=== PATIENT | female | born 1945 | race Two or more races ===

== ENCOUNTER 2025-07-05 07:56 | Inpatient (IN) | payer OTHER, MEDICARE, MEDICAID ==
[~2025-07-05] VITALS: Ht 149.9 cm; Wt 69.9 kg
--- NOTE | 2025-07-05 11:01 | ED.PDOC ---
HPI Comments 79 year old female with PMHx HTN presents to the ED with a chief complaint of high blood pressure onset 2 days. Daughter states patient's BP has been elevated for the past 2 days, has been complaint with medication. Patient states she has also been experiencing headache. Upon ED arrival, BP was 139/97. Denies chest pain, dizziness, blurred vision, numbness/tingling, nausea, vomiting,diarrhea, fever, chills. No other symptoms or modifying factors present at this time. 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 HYDRO EXCAVATION OPERATOR History Family History Family History: Reviewed,noncontributory to illness, No family hx of Cancer, No family hx of DM, No family hx of Heart monica, No family hx of HTN, No family hx ofKidney monica, No family hx of Liver monica, No family hx of Lung monica, No family hx of Stroke Social History Smoker: Non-Smoker Alcohol: Denies ETOH Use Drugs: Denies Drug Use Lives In: Home Constitutional: denies: chills, diaphoresis, fatigue, fever, malaise, sweats, weakness, others EENTM: denies: blurred vision, double vision, ear bleeding, ear discharge, ear drainage, ear pain, ear ringing, eye pain, eye redness, hearing loss, mouth pain, mouth swelling, nasal discharge, nose bleeding, nose congestion, nose pain, photophobia, tearing, throat pain, throat swelling, voice changes, others Respiratory: denies: cough, hemoptysis, orthopnea, SOB at rest, shortness of breath, SOB with excertion, stridor, wheezing, others Cardiovascular: reports: others (hypertension); denies: chest pain, dizzy spells, diaphoresis, Dyspnea on exertion, edema, irregular heart beat, left arm pain, lightheadedness, palpitations, PND, syncope Gastrointestinal: denies: abdomen distended, abdominal pain, blood streaked bowels, constipated, diarrhea, dysphagia, difficulty swallowing, hematemesis, melena, nausea, poor appetite, poor fluid intake, rectal bleeding, rectal pain, vomiting, others Genitourinary: denies: abnormal vagina bleeding, burning, dyspareunia, dysuria, flank pain, frequency, hematuria, incontinence, pain, , vagina discharge, urgency, others Neurological: reports: headache; denies: dizziness, fainting, left sided numbness, left sided weakness, numbness, paresthesia, pre-existing deficit, right sided numbness, right sided weakness, seizure, speech problems, tingling, tremors, weakness, others Musculoskeletal: denies: back pain, gout, joint pain, joint swelling, muscle pain, muscle stiffness, neck pain, others Integumetry: denies: bruises, change in color, change in hair/nails, dryness, laceration, lesions, lumps, rash, wounds, others Allergic/Immunocompromised: denies: Difficulty Healing, Frequent Infections, Hives, Itching, others Hematologic/Lymphatic: denies: anemia, blood clots, easy bleeding, easy bruising, swollen glands, others Endocrine: denies: excessive hunger, excessive sweating, excessive thirst, excessive urination, flushing, intolerance to cold, intolerance to heat, unexplained weight gain, unexplained weight loss, others Psychiatric: denies: anxiety, bipolar disorder, depression, hopeless, panic disorder, schizophrenia, sleepless, suicidal, others All Other Systems: Reviewed and Negative Physical Exam General Appearance: No Apparent Distress, Normal HEENT: Normal ENT Inspection, Pharynx Normal, TMs Normal Neck: Full Range of Motion, Non-Tender, Normal, Normal Inspection Respiratory: Chest Non-Tender, Lungs Clear, No Accessory Muscle Use, No Respiratory Distress, Normal Breath Sounds Cardiovascular: No Edema, No JVD, No Murmur, No Gallop, Normal Peripheral Pulses, Regular Rate/Rhythm Breast Exam: Deferred Gastrointestinal: No Organomegaly, Non Tender, No Pulsatile Mass, Normal Bowel Sounds, Soft Genitalia: Deferred Pelvic: Deferred Rectal: Deferred Extremities: No calf tenderness, Normal capillary refill, Normal inspection, Normal range of motion, Non-tender, No pedal edema Musculoskeletal : Apperance: Normal Neurologic: Alert, patrol officer II-XII nml as Tested, No Motor Deficits, Normal Affect, Normal Mood, No Sensory Deficits Cerebellar Function: Normal Reflexes: Normal Skin: Dry, Normal Color, Warm Lymphatic: No Adenopathy Was a procedure done? Was a procedure done?: No CP Differential Dx Differential Diagnosis: Hypoxia, MAT, MN, PAC's, Pacemaker Malfunction Differential Diagnosis: HTN Essential, HTN Accelerated Differential Diagnosis: Gastritis, Myocardial Infarction, Pericarditis X-Ray, Labs, Meds, VS Vital Signs Date Time Temp Pulse Resp B/P (MAP) Pulse Ox O2 Delivery O2 Flow Rate FiO2 07/05/25 07:57 97.1 64 16 139/97 98 97.1 Lab Test 07/05/25 13:23 07/05/25 11:23 Range/Units Troponin I High Sensitivity Pending 7 </=34 ng/L White Blood Count 6.6 4.4-10.8 10^3/uL Red Blood Count 5.70 H 4.0-5.20 10^6/uL Hemoglobin 12.3 12.2-16.2 g/dL Hematocrit 39.3 36.0-46.0 % Mean Corpuscular Volume 69.0 L 80.0-100.0 fL Mean Corpuscular Hemoglobin 21.7 L 28.0-32.0 pg Mean Corpuscular Hemoglobin Concent 31.4 L 32.0-36.0 g/dL Red Cell Distribution Width 19.0 H 11.8-14.3 % Platelet Count 255 140-450 10^3/uL Mean Platelet Volume 8.0 6.9-10.8 fL Neutrophils (%) (Auto) 37.0-80.0 % Lymphocytes (%) (Auto) 10.0-50.0 % Monocytes (%) (Auto) 0.0-12.0 % Basophils (%) (Auto) 0.0-2.0 % Neutrophils # (Auto) 1.6-8.6 10 ^3/uL Lymphocytes # (Auto) 0.4-5.4 10 ^3/uL Monocytes # (Auto) 0-1.3 10 ^3/uL Differential Total Cells Counted 100.0 100 Neutrophils % (Manual) 60 37.0-80.0 Band Neutrophils % (Manual) 0 Lymphocytes % (Manual) 32 10.0-50.0 Monocytes % (Manual) 5 0-12 Eosinophils % (Manual) 3 0-7 Basophils % (Manual) 0 0.0-2.0 Metamyelocytes % (manual) 0 Myelocytes % (Manual) 0 Promyelocytes % (Manual) 0 Blast Cells % (Manual) 0 Reactive Lymphocytes 0 Platelet Estimate Adequate Sodium Level 130 L 136-145 mmol/L Potassium Level 4.3 3.5-5.1 mmol/L Chloride Level 97 L 98-107 mmol/L Carbon Dioxide Level 23 20-31 mmol/L Anion Gap 10 5-15 Blood Urea Nitrogen 11 9-23 mg/dL Creatinine 1.13 H 0.550-1.02 mg/dL Glomerular Filtration Rate Calc 50 >90 mL/min BUN/Creatinine Ratio 9.7 L 10.0-20.0 Serum Glucose 131 H 74-106 mg/dL Calcium Level 9.6 8.7-10.4 mg/dL B-Type Natriuretic Peptide 250.00 0-100 pg/mL Time of 1ST Reevaluation: 11:20 Reevaluation 1ST: Unchanged Patient Education/Counseling: Diagnosis, Treatment, Prognosis Family Education/Counseling: Diagnosis, Treatment, Prognosis SEPSIS Sepsis Screen Date sepsis recognized/suspect: Jul 05, 2025 Time Sepsis recognized/suspect: 075 Recent Procedure: No On Antibiotic Therapy: No Respiratory Rate >20: No Heart Rate >90: No Temp<36 C (96.8 F) or >38.3 C: No SBP <90 or MAP <65 mmHG: No New Acute Mental Status Change: No Is the patient on CPAP, BIPAP,: No Physician Orders Chest Portable (07/05/25 10:57) Head Without Contrast (07/05/25 10:57) Electrocardigram (07/05/25 10:57) Urinalysis (07/05/25 10:57) Troponin-I Hs (07/05/25 11:57) Troponin-I Hs (07/05/25 13:57) Electrocardigram (07/05/25 11:57) Electrocardigram (07/05/25 13:57) Vital Signs Date Time Temp Pulse Resp B/P (MAP) Pulse Ox O2 Delivery O2 Flow Rate FiO2 07/05/25 07:57 97.1 64 16 139/97 98 97.1 Laboratory Tests Test 07/05/25 11:23 White Blood Count 6.6 10^3/uL (4.4-10.8) Departure 1 Departure Time of Disposition: 13:51 (Patient presented with hypertension and symptoms concerning for hypertensive emergency. Patient is receiving iv blood pressure medications requiring intensive monitoring. Data: 1. I ordered and reviewed the result of at least 3 labs including a CBC, BMP, and Urinalysis. 2. I independently interpreted the following tests: CT Brain: Which appears benign. EKG which is Normal Sinus RhythmRisk:This patient has a high risk of morbidity due to further diagnostic testing or treatment and may suffer from an acute cardiac disorder. Workup reveals hypertensive emergency and patient should be admitted for further workup. and possible expert consultation. ) Impression: Primary Impression: Hypertensive urgency Additional Impression: Migraine Disposition: ADMITTED INPATIENT Admit to: Tele Condition: Guarded Critical Care Note Critical Care Time?: Yes Critical care comment: Hypertensive urgency Authorized and Performed by: Niharika Carey MD Total critical care time: Approximately 38 minutes Due to a high probability of clinically significant, life threatening deterioration, the patient required my highest level of preparedness to intervene emergently and I personally spent this critical care time directly and personally managing the patient. This critical care time included obtaining a history; examining the patient; pulse oximetry; ordering and review of studies; arranging urgent treatment with development of a management plan; evaluation of patient's response to treatment; frequent reassessment; and, discussions with other providers. This critical care time was performed to assess and manage the high probability of imminent, life-threatening deterioration that could result in multi-organ failure. It was exclusive of separately billable procedures and treating other patients and teaching time. Please see my other sections and the rest of the note for further information on patient assessment and treatment. Stability Stability form required: No Heart Score Heart Score: Heart Score Response (Comments) Value History N/A 0 EKG N/A 0 Age N/A 0 Risk Factors N/A 0 Troponin N/A 0 Total 0 I personally scribed for NIHARIKA CAREY MD ([email or web address]) on 07/05/25 at 11:01. Electronically submitted by Annmarie Donald ([email or web address]). NIHARIKA CAREY MD Jul 05, 2025 11:01
[2025-07-05 12:02] LABS: Hematocrit 39.3 % (36.0-46.0); Hemoglobin 12.3 g/dL (12.2-16.2); Mean Corpuscular Hemoglobin 21.7 pg (28.0-32.0); Mean Corpuscular Volume 69.0 fL (80.0-100.0)
[2025-07-05 12:04] LABS: Potassium 4.3 mmol/L (3.5-5.1)
[2025-07-05 12:05] LABS: Anion Gap 10 (5-15); Calcium 9.6 mg/dL (8.7-10.4); Carbon Dioxide 23 mmol/L (20-31)
--- NOTE | 2025-07-05 12:07 | DVH ---
CT brain without contrast CLINICAL INDICATION: htn, headache FINDINGS: The study was performed in a multidetector scanner. This study performed taking axial images from the skull base up to the vertex. Both brain and bone windows are photographed. Dose lowering techniques have been used including automated exposure control and adjustment of mA and/or KV according to patient size. Normal and symmetrical shape and density of brain parenchyma above and below the tentorium is seen. There is no mass, midline shift or hydrocephalus. No intra/extra-axial collections demonstrated. There is no intracranial hemorrhage. The calvarium is intact. IMPRESSION: 1. No acute intracranial pathology. 2. 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 Computed Tomographic Radiation Dosimetry Report: Total CTDI vol = 53.5mGy Total DLP = 966.44mGy-cm All CT scans at this medical facility are performed using dose modulation techniques as appropriate to a performed exam including the following: Automated exposure control was utilized; adjustment of the MA and/or KvP according to patient size; and use of iterative reconstruction technique.
--- NOTE | 2025-07-05 12:09 | DVH ---
INDICATION: htn, chest pain TECHNIQUE: Frontal view of the chest. COMPARISON: None FINDINGS: . The heart and mediastinal contours are grossly unremarkable. There is no evidence of pleural disease. The lungs are clear. The bony structures of the chest are intact without fracture. IMPRESSION: 1. No evidence of acute disease.
[2025-07-05 12:10] LABS: BUN/Creatinine Ratio 9.7 (10.0-20.0); Blood Urea Nitrogen 11 mg/dL (9-23)
[2025-07-05 12:11] LABS: Chloride 97 mmol/L (98-107); Glucose 131 mg/dL (74-106); Sodium 130 mmol/L (136-145)
[2025-07-05 12:45] LABS: Total Cells Counted 100.0 (100)
[2025-07-05] MEDS: hydrALAZINE HCL 20 MG/ML VL IV ONE (14:28)
[2025-07-05] MEDS ORDERED: ACETAMINOPHEN 325 MG TAB PO PRN (14:30)
[2025-07-05] MEDS ORDERED: HYDROcodone-ACET 5/325MG TAB PO PRN (14:30)
[2025-07-05 14:34] VITALS: BP 167/64; PULSE 57; RESP 16; TEMP 98.4; O2SAT 99
--- NOTE | 2025-07-05 14:51 | DVHHPRES ---
History of Present Illness Resident Creating Document: NAYELI CAVAZOS RESIDENT History of Present Illness This is a 79-year-old female poor historian/does not speak Ivorian 100%. Patient has past medical history of hypertension, pulmonary hypertension, diabetes mellitus type 2, dyslipidemia who presented to the ED with chief complaint of significantly high blood pressure in the past two days associated with headache and lightheadedness. According to the daughter, patient has been having consistently high blood pressure at home approximately 180/98 in multiple occasions. The daughter also states that the patient keeps reporting insomnia, headache and lightheadedness. Daughter states that the patient is adhering to her home blood pressure medications and is taking all medications as prescribed. Upon arrival to the ED systolic blood pressure was in the 145s and received single dose of IV hydralazine. Initial labs were grossly unremarkable except for mild JED with a creatinine of 1.13. We will admit the patient for further assessment and management of hypertensive urgency. Home medications: Losartan 50 mg daily, metoprolol tartrate 25 mg b.i.d., clonidine 0.1 mg b.i.d., simvastatin 20 mg daily Surgical history: Per daughter, patient had an open heart surgery [place] March 03, 2025 for a mass in the left side of the heart. 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 Cardiovascular: HTN, hyperipidemia Endocrine: Diabetes Past Surgical History: Other (Open heart surgery on [place] March 03, 2025 due to a mass in the left side of the heart.), Tubal Ligation Family History: None Smoke: No ALCOHOL: none Drugs: None Lives: with Family Review of Systems Constitutional: Yes: Malaise, Other (Headache and lightheadedness); No: Fever, Chills, Sweats, Weakness Eyes: No: Pain, Vision change, Conjunctivae inflammation, Eyelid inflammation, Other, Redness ENT: No: Ear pain, Ear discharge, Nose pain, Nose discharge, Nose congestion, Mouth pain, Mouth swelling, Throat pain, Throat swelling, Other Respiratory: No: Cough, Dry, Shortness of breath, SOB with excertion, Wheezing, Hemoptysis, Pleuritic Pain, Sputum, Wheezing, Other Cardiovascular: No: Chest Pain, Palpitations, Orthopnea, Paroxysmal Noc. Dyspnea, Edema, Lt Headedness, Other Gastrointestinal: No: Nausea, Vomiting, Abdominal Pain, Diarrhea, Constipation, Melena, Hematochezia, Other Genitourinary: No Dysuria, No Frequency, No Incontinence, No Hematuria, No Retention, No Other Musculoskeletal: No: other, neck pain, shoulder pain, arm pain, back pain, hand pain, leg pain, foot pain Skin: No: Rash, Lesions, Jaundice, Bruising, Other Neurological: No: Weakness, Numbness, Incoordination, Change in speech, Confusion, Seizures, Other Allergies: Coded Allergies: NO KNOWN ALLERGIES (Unverified , 07/05/25) Medications Current Medications Medications Dose Ordered Sig/Karishma Route Start Time Stop Time Status Last Admin Dose Admin Acetaminophen 650 mg Q6HP PRN PO 07/05/25 14:30 UNV Acetaminophen/ Hydrocodone Bitart 1 tab Q4HP PRN PO 07/05/25 14:30 UNV Enoxaparin Sodium 40 mg DAILY SC 07/06/25 10:00 UNV Losartan Potassium 50 mg DAILY PO 07/06/25 10:00 UNV Metoprolol Tartrate 25 mg BID PO 07/05/25 22:00 UNV Exam Vital Signs Vital Signs Date Time Temp Pulse Resp B/P (MAP) Pulse Ox O2 Delivery O2 Flow Rate FiO2 07/05/25 07:57 97.1 64 16 139/97 98 97.1 General Appearance: Alert, Oriented X3, Cooperative, No acute distress HEENT: Atraumatic, PERRLA, EOMI, Mucous membr. moist/pink Respiratory: Clear to auscultation, Normal air movement Cardiovascular: Regular rate, Normal S1, Normal S2, No murmurs Abdominal: Normal bowel sounds, Soft, No tenderness, No hepatospenomegaly, No masses Extremities: No clubbing, No cyanosis, No edema, Normal pulses, No tenderness/swelling Skin: No rashes, No breakdown, No significant lesion Neuro: Normal gait, Normal speech, Strength at 5/5 X4 ext, Normal tone, Sensation intact, Cranial nerves 3-12 NL, Reflexes 2+ Psych/Mental Status: Mental status NL, Mood NL Labs/Xrays Labs Test 07/05/25 13:23 07/05/25 11:23 Range/Units Troponin I High Sensitivity 6 </=34 ng/L White Blood Count 6.6 4.4-10.8 10^3/uL Red Blood Count 5.70 H 4.0-5.20 10^6/uL Hemoglobin 12.3 12.2-16.2 g/dL Hematocrit 39.3 36.0-46.0 % Mean Corpuscular Volume 69.0 L 80.0-100.0 fL Mean Corpuscular Hemoglobin 21.7 L 28.0-32.0 pg Mean Corpuscular Hemoglobin Concent 31.4 L 32.0-36.0 g/dL Red Cell Distribution Width 19.0 H 11.8-14.3 % Platelet Count 255 140-450 10^3/uL Mean Platelet Volume 8.0 6.9-10.8 fL Neutrophils (%) (Auto) 37.0-80.0 % Lymphocytes (%) (Auto) 10.0-50.0 % Monocytes (%) (Auto) 0.0-12.0 % Basophils (%) (Auto) 0.0-2.0 % Neutrophils # (Auto) 1.6-8.6 10 ^3/uL Lymphocytes # (Auto) 0.4-5.4 10 ^3/uL Monocytes # (Auto) 0-1.3 10 ^3/uL Differential Total Cells Counted 100.0 100 Neutrophils % (Manual) 60 37.0-80.0 Band Neutrophils % (Manual) 0 Lymphocytes % (Manual) 32 10.0-50.0 Monocytes % (Manual) 5 0-12 Eosinophils % (Manual) 3 0-7 Basophils % (Manual) 0 0.0-2.0 Metamyelocytes % (manual) 0 Myelocytes % (Manual) 0 Promyelocytes % (Manual) 0 Blast Cells % (Manual) 0 Reactive Lymphocytes 0 Platelet Estimate Adequate Sodium Level 130 L 136-145 mmol/L Potassium Level 4.3 3.5-5.1 mmol/L Chloride Level 97 L 98-107 mmol/L Carbon Dioxide Level 23 20-31 mmol/L Anion Gap 10 5-15 Blood Urea Nitrogen 11 9-23 mg/dL Creatinine 1.13 H 0.550-1.02 mg/dL Glomerular Filtration Rate Calc 50 >90 mL/min BUN/Creatinine Ratio 9.7 L 10.0-20.0 Serum Glucose 131 H 74-106 mg/dL Calcium Level 9.6 8.7-10.4 mg/dL B-Type Natriuretic Peptide 250.00 0-100 pg/mL SEPSIS Sepsis Screen Date sepsis recognized/suspect: Jul 05, 2025 Time Sepsis recognized/suspect: 075 Recent Procedure: No On Antibiotic Therapy: No Respiratory Rate >20: No Heart Rate >90: No Temp<36 C (96.8 F) or >38.3 C: No SBP <90 or MAP <65 mmHG: No New Acute Mental Status Change: No Is the patient on CPAP, BIPAP,: No Physician Orders Chest Portable (07/05/25 10:57) Head Without Contrast (07/05/25 10:57) Electrocardigram (07/05/25 10:57) Urinalysis (07/05/25 10:57) Troponin-I Hs (07/05/25 13:57) Electrocardigram (07/05/25 11:57) Electrocardigram (07/05/25 13:57) Admit (07/05/25 14:20) Code Status (07/05/25 14:20) Vital Signs .PER UNIT PROTOCOL (07/05/25 14:20) Review Orders With Adm.Md (07/05/25 14:20) Encourage Activity As Tolerate (07/05/25 14:20) Consistent Carb(Ccho)Diabetes (07/05/25 Dinner) Acetaminophen Tablet (Tylenol Tablet) (07/05/25 14:30) Notify Md Of Changes From Base (07/05/25 14:20) Advance Directive (07/05/25 14:20) Basic Metabolic Panel (07/06/25 04:00) Urinalysis (07/05/25 14:20) Complete Blood Count (07/06/25 04:00) Lipid Panel (07/05/25 14:20) Patient Condition (07/05/25 14:20) Allergies (07/05/25 14:20) Hydrocodone-Acet 5/325mg Tab ([place] 5/32 (07/05/25 14:30) Drug Screen (07/05/25 14:20) Hemoglobin A1c (07/05/25 14:20) Enoxaparin Sodium (Lovenox) (07/06/25 10:00) Losartan Tablet (Cozaar Tablet) (07/06/25 10:00) Metoprolol Tartrate Tablet (Lopressor Ta (07/05/25 22:00) Echo 2d Mode Cardiac Dop (07/05/25 14:27) Acetaminophen Tablet (Tylenol Tablet) (07/05/25 14:30) Atorvastatin (Lipitor) (07/06/25 10:00) NS (07/05/25 14:30) Vital Signs Date Time Temp Pulse Resp B/P (MAP) Pulse Ox O2 Delivery O2 Flow Rate FiO2 07/05/25 07:57 97.1 64 16 139/97 98 97.1 Laboratory Tests Test 07/05/25 11:23 White Blood Count 6.6 10^3/uL (4.4-10.8) Assessment/Plan Assessment/Plan Assessment/plan Hypertensive urgency Acute intractable headache associated with lightheadedness and general malaise 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 Losartan 50 mg daily, metoprolol tartrate 25 mg b.i.d. -EKG ordered, BNP was 250. Trops are negative -ordered echocardiogram -ordered UA and UDS -start atorvastatin 40 mg daily -ordered hemoglobin A1c, start mild sliding scale insulin -monitor blood glucose closely -monitor kidney function -admit to med surge Goals of care discussed with the patient and at bedside, full code Plan discussed with Dr. Fernandez Plan discussed with: Patient, Spouse My Orders Orders - NAYELI CAVAZOS RESIDENT Procedure Category Date Status Time Admit ADMIT 07/05/25 Transmitted 14:20 Code Status CODE 07/05/25 Transmitted 14:20 Vital Signs VALERIE 07/05/25 In Process 14:20 Review Orders With VALERIE 07/05/25 In Process Adm. 14:20 Encourage Activity As VALERIE 07/05/25 In Process Tolerate 14:20 Consistent DIET 07/05/25 Transmitted Carb(Ccho)Diabetes Dinner Acetaminophen Tablet PHA 07/05/25 Logged (Tylenol Tablet) 14:30 Notify Of Changes VALERIE 07/05/25 In Process From Base 14:20 Advance Directive VALERIE 07/05/25 In Process 14:20 Basic Metabolic Panel LAB 07/06/25 Verified 04:00 Urinalysis LAB 07/05/25 Logged 14:20 Complete Blood Count LAB 07/06/25 Verified 04:00 Lipid Panel LAB 07/05/25 Logged 14:20 Patient Condition ORDERS 07/05/25 Transmitted 14:20 Allergies VALERIE 07/05/25 In Process 14:20 Hydrocodone-Acet PHA 07/05/25 Logged 5/325mg Tab ([place] 14:30 Drug Screen LAB 07/05/25 Logged 14:20 Hemoglobin A1c LAB 07/05/25 Logged 14:20 Enoxaparin Sodium PHA 07/06/25 Logged (Lovenox) 10:00 Losartan Tablet PHA 07/06/25 Transmitted (Cozaar Tablet) 10:00 Metoprolol Tartrate PHA 07/05/25 Logged Tablet (Lopressor Ta 22:00 Echo 2d Mode Cardiac US 07/05/25 Logged DOP 14:27 Acetaminophen Tablet PHA 07/05/25 Logged (Tylenol Tablet) 14:30 Atorvastatin (Lipitor) PHA 07/06/25 Logged 10:00 NS PHA 07/05/25 Transmitted 14:30 Date of Service: Jul 05, 2025 Billing Provider: KELY FERNANDEZ MD Common Visit Codes: 17770-RFLURRO INP/OBS CARE (HIGH) Secondary Visit Codes: 48007-[id number] CARE PLAN 30 MINUTES NAYELI CAVAZOS RESIDENT Jul 05, 2025 14:51
[2025-07-05 14:53] LABS: Cholesterol 244 mg/dL (< 200); HDL Cholesterol 85 mg/dL (40-59); Triglycerides 177 mg/dL (< 150)
[2025-07-05] MEDS: ACETAMINOPHEN 325 MG TAB PO ONE (15:29)
[2025-07-05] MEDS: SODIUM CHLORIDE 0.9% 250 ML IV ONE (15:30)
[2025-07-05] MEDS ORDERED: METOPROLOL TARTRATE 25 MG TAB PO SCH (22:00)
[2025-07-05] MEDS ORDERED: ATORVASTATIN 20 MG TAB PO SCH (22:00)
[2025-07-06] MEDS ORDERED: LOSARTAN POTASSIUM 50 MG TAB PO SCH (10:00)
[2025-07-06] MEDS ORDERED: ENOXAPARIN SOD 40 MG/0.4 ML SYRINGE SC SCH (10:00)
[2025-07-06] MEDS ORDERED: ATORVASTATIN 20 MG TAB PO SCH (10:00)
== END 2025-07-05 19:00 | disposition left against medical advice (07) | DRG 304 ==
LOC: ER 07:56 → OVERFLOW 14:20
PROVIDERS: ADMIT Student in an Organized Health Care Education/Training Program; ATTEND Emergency Medicine
DX: I16.0 Hypertensive urgency (principal); N17.0 Acute kidney failure with tubular necrosis; I27.20 Pulmonary hypertension, unspecified; E11.9 Type 2 diabetes mellitus without complications; I10 Essential (primary) hypertension; G43.909 Migraine, unspecified, not intractable, without status migrainosus; E78.5 Hyperlipidemia, unspecified; Z53.29 Procedure and treatment not carried out because of patient's decision for other reasons; Z95.1 Presence of aortocoronary bypass graft; Z98.51 Tubal ligation status
CPT/HCPCS: 36415; 70450; 71045; 80048; 80061; 83036; 83880; 84484; 85007; 85027; 96374; 99291; G0378